=== PATIENT | female | born 1970 | race Caucasian/White ===

== ENCOUNTER 2016-12-27 01:52 | Observation (INO) | payer MEDICARE, OTHER ==
[2016-12-27] VITALS (9 sets, daily range): BP systolic 126–188; BP diastolic 73–90; PULSE 66–91; RESP 18–19; TEMP 97.8; Ht 167.6 cm; Wt 108.5 kg
[~2016-12-27] VITALS: Ht 167.6 cm; Wt 108.5 kg
[2016-12-27 02:52] LABS: BASOPHIL # 0.1 10^3/ul (0.0-0.1); BASOPHILS % 0.9 % (0.0-2.0); EOSINOPHILS # 0.4 10^3/ul (0.0-0.5); EOSINOPHILS % 4.9 % (0.0-7.0); HEMATOCRIT 36.3 % (37.0-47.0); HEMOGLOBIN 12.4 g/dl (12.0-16.0); LYMPHOCYTES # 2.1 10^3/ul (0.8-2.9); LYMPHOCYTES % 26.9 % (15.0-51.0); MEAN CORPUSCULAR HEMOGLOBIN 35.9 pg (29.0-33.0); MEAN CORPUSCULAR HGB CONC 34.2 g/dl (32.0-37.0); MEAN CORPUSCULAR VOLUME 105.2 fl (82.0-101.0); MEAN PLATELET VOLUME 9.6 fl (7.4-10.4); MONOCYTE # 0.8 10^3/ul (0.3-0.9); MONOCYTES % 9.4 % (0.0-11.0); NEUTROPHIL # 4.6 10^3/ul (1.6-7.5); NEUTROPHILS % 57.6 % (39.0-77.0); PLATELET COUNT 297 10^3/UL (140-415); RED BLOOD COUNT 3.45 10^6/ul (4.20-5.40); RED CELL DISTRIBUTION WIDTH 15.9 % (11.5-14.5)
[2016-12-27 03:15] LABS: INR 0.87; PARTIAL THROMBOPLASTIN TIME 26.9 Sec (25.0-35.0); PROTIME 11.8 Sec (12.2-14.2); PT RATIO 0.9
[2016-12-27 03:24] LABS: ALBUMIN 4.6 g/dl (3.3-4.9); ALBUMIN/GLOBULIN RATIO 1.27; BILIRUBIN,INDIRECT 0.2 mg/dl (0-1.1); BILIRUBIN,TOTAL 0.2 mg/dl (0.2-1.3); CALCIUM 9.6 mg/dl (8.4-10.2); POTASSIUM 4.9 mmol/L (3.5-5.1); TOTAL PROTEIN 8.2 g/dl (6.1-8.1)
[2016-12-27 03:35] LABS: TROPONIN-I 0.048 ng/ml (0.00-0.12)
--- NOTE | 2016-12-27 03:35 | RADRPT ---
PROCEDURE: CHEST - 1 VIEW CLINICAL INDICATION: 46-year-old female with chest pain. TECHNIQUE: A single frontal AP upright portable view of the chest was performed. The images were reviewed on a PACS workstation. COMPARISON: None. FINDINGS: There is a right internal jugular line with the tip at the right atrial level. The cardiomediastina l silhouette is mildly enlarged. There is a shallow inspiration. There is no evidence for an infil trate. There is no evidence for congestive heart failure. There is no evidence for pneumothorax. Mi ld degenerative changes are seen within the spine. IMPRESSION: 1. Right internal jugular central line with the tip at the right atrial level. 2. Cardiomegaly. 3. Shallow inspiration. 4. Mild degenerative changes within the spine. .Osiel Lopez MD, Date Time Electronically viewed and signed by .Osiel Lopez MD, on 12/27/2016 03:34 .M/
[2016-12-27 03:36] LABS: CREATININE 11.36 mg/dl (0.44-1.00)
[2016-12-27] MEDS ORDERED: SEVE800T7 PO (03:43)
[2016-12-27] MEDS ORDERED: LABE100T3 PO (03:43)
[2016-12-27] MEDS ORDERED: GLIM4TAB PO (03:43)
[2016-12-27] MEDS ORDERED: LEVO25TA59 PO (03:43)
[2016-12-27] MEDS ORDERED: FURO40TA4 PO (03:43)
[2016-12-27] MEDS ORDERED: CLON-379 PO (03:43)
[2016-12-27] MEDS ORDERED: MINE3.5O31 BOTH EYES (03:43)
--- NOTE | 2016-12-27 05:49 | ERA ---
ER Documentation Chief Complaint Date/Time DATE: 12/27/16 TIME: 05:48 Chief Complaint right subclavian lucio catheter for dialysis is broken, VISUALLY IMPAIRED HPI 46-year-old female comes in with a right subclavian Lucio catheter for dialysis that is malfunctioning. Patient has missed her last dialysis. She can was a mild shortness of breath. No chest pain. No other current complaints ROS All systems reviewed and are negative except as per history of present illness. Medications Home Meds Reported Medications Artificial Tears* (Akwa Oint*) 3.5 Gm Oint, 1 APPLIC BOTH EYES HS, #1 TUB 12/27/16 Labetalol Hcl* (Labetalol Hcl*) Unknown Strength Tablet, PO BID, TAB 12/27/16 Levothyroxine Sodium* (Synthroid*) Unknown Strength Tablet, 0 PO BEFORE BREAKFAST, #30 TAB 12/27/16 Sevelamer Carbonate* (Renvela*) 800 Mg Tablet, 0.8 GM PO BID, TAB 12/27/16 Clonidine Hcl* (Clonidine Hcl*) 0.1 Mg Tab, 0.1 MG PO Q4H, TAB 12/27/16 Furosemide* (Furosemide*) 40 Mg Tablet, 40 MG PO DAILY, TAB 12/27/16 Glimepiride* (Glimepiride*) 4 Mg Tablet, 4 MG PO WITH BREAKFAST DINNE, TAB 12/27/16 Allergies Allergies: Coded Allergies: hydralazine (Verified Allergy, Unknown, 12/27/16) simvastatin (Verified Allergy, Unknown, 12/27/16) PMhx/Soc History of Surgery: No Anesthesia Reaction: No Hx Neurological Disorder: No Hx Respiratory Disorders: No Hx Cardiac Disorders: Yes (HTN ) Hx Psychiatric Problems: No Hx Alcohol Use: No Hx Substance Use: No Hx Tobacco Use: No Smoking Status: Never smoker Physical Exam Vitals Vital Signs Date Time Temp Pulse Resp B/P Pulse Ox O2 Delivery O2 Flow Rate FiO2 12/27/16 04:30 97.8 81 19 186/82 100 Room Air 12/27/16 02:20 97.8 72 20 196/94 100 Room Air 12/27/16 02:01 97.8 86 20 231/118 100 Physical Exam Const: [] Head: Atraumatic Eyes: Normal Conjunctiva ENT: Normal External Ears, Nose and Mouth. Neck: Full range of motion..~ No meningismus. Resp: Clear to auscultation bilaterally Cardio: Regular rate and rhythm, no murmurs Abd: Soft, non tender, non distended. Normal bowel sounds Skin: No petechiae or rashes Back: No midline or flank tenderness Ext: No cyanosis, or edema Neur: Awake and alert Psych: Normal Mood and Affect Result Diagram: 12/27/16 0240 12/27/16 0240 Results 24 hrs Laboratory Tests Test 12/27/16 02:40 White Blood Count 8.010^3/ul Red Blood Count 3.4510^6/ul Hemoglobin 12.4g/dl Hematocrit 36.3% Mean Corpuscular Volume 105.2fl Mean Corpuscular Hemoglobin 35.9pg Mean Corpuscular Hemoglobin Concent 34.2g/dl Red Cell Distribution Width 15.9% Platelet Count 15240^3/UL Mean Platelet Volume 9.6fl Neutrophils % 57.6% Lymphocytes % 26.9% Monocytes % 9.4% Eosinophils % 4.9% Basophils % 0.9% Nucleated Red Blood Cells % 0.0/100WBC Neutrophils # 4.610^3/ul Lymphocytes # 2.110^3/ul Monocytes # 0.810^3/ul Eosinophils # 0.410^3/ul Basophils # 0.110^3/ul Nucleated Red Blood Cells # 0.010^3/ul Prothrombin Time 11.8Sec Prothrombin Time Ratio 0.9 INR International Normalized Ratio 0.87 Activated Partial Thromboplast Time 26.9Sec Sodium Level 141mmol/L Potassium Level 4.9mmol/L Chloride Level 98mmol/L Carbon Dioxide Level 23mmol/L Anion Gap 25 Blood Urea Nitrogen 67mg/dl Creatinine 11.36mg/dl Glucose Level 163mg/dl Calcium Level 9.6mg/dl Total Bilirubin 0.2mg/dl Direct Bilirubin 0.00mg/dl Indirect Bilirubin 0.2mg/dl Aspartate Amino Transf (AST/SGOT) 23IU/L Alanine Aminotransferase (ALT/SGPT) 23IU/L Alkaline Phosphatase 109IU/L Troponin I 0.048ng/ml B-Type Natriuretic Peptide 4960PG/ML Total Protein 8.2g/dl Albumin 4.6g/dl Globulin 3.60g/dl Albumin/Globulin Ratio 1.27 Procedures/MDM EKG: Rate/Rhythm: [Normal Sinus Rhythm] QRS, ST, T-waves: [No changes consistent w/ acute ischemia] Impression: [No evidence of ischemia or arrhythmia] Chest X-ray 1V Interpreted by me: Soft Tissue: No acute abnormalities Bones: No acute abnormalities Mediastinum/Cardiac Silhouette/Lungs: [No acute abnormalities] Patient's heart failure symptoms is concerning for acute decompensation and will require inpatient workup and monitoring. Further w/u for ischemia, arrhythmia, PE or dissection will be deferred to the inpatient team. Patient's Lucio catheter also need to be replaced Accepting Care Team: Current data and ongoing care discussed. Time: 5:35 AM Primary Provider: Hospitalist Consulting: [XOXOXO] Outstanding Data: none Departure Diagnosis: Primary Impression: Complication of vascular access for dialysis Qualified Code: T82.9XXA - Complication of vascular access for dialysis, initial encounter Additional Impression: Fluid overload Qualified Code: E87.79 - Other hypervolemia Condition: Serious COLIN ESCOBEDO Dec 27, 2016 05:49
[2016-12-27] MEDS ORDERED: GLUCAGON 1 MG INJ IM PRN (09:00)
[2016-12-27] MEDS ORDERED: ONDANSETRON 4 MG INJ IV PRN (09:00)
[2016-12-27] MEDS ORDERED: GLUCOSE GEL 15 GRAM TUBE PO PRN ×2 (09:00)
[2016-12-27] MEDS ORDERED: DEXTROSE 50% 50 ML SYRINGE IV PRN ×2 (09:00)
[2016-12-27] MEDS ORDERED: NACL 0.9% 3 ML SYG IV SCH (09:00)
[2016-12-27] MEDS ORDERED: ALBUTEROL/IPRATROPIUM (NEB) 3 ML AMP HHN PRN (09:00)
[2016-12-27] MEDS ORDERED: INSULIN GLARGINE [LANtus] 3 ML PEN SC SCH (09:00)
[2016-12-27] MEDS ORDERED: LABETALOL HCL 20MG INJ IV PRN (09:00)
[2016-12-27] MEDS: LABETALOL 200 MG TAB PO SCH ×2 (09:00→21:00)
[2016-12-27] MEDS ORDERED: GLUCOSE GEL 15 GRAM TUBE BUCCAL PRN (09:00)
--- NOTE | 2016-12-27 10:28 | HP ---
Date/Time of Note Date/Time of Note DATE: 12/27/16 TIME: 10:23 Assessment/Plan Lines/Catheters IV [facility]from [facility]): Saline Lock Assessment/Plan Assessment/Plan 1. Dialysis catheter malfunction -Patient accidentally cut one part of the dialysis catheter and now needs to be replaced. - will place a vascular or IR consult. - will also need to get nephrology on board. 2. Hypertensive urgency: Blood pressure is not at goal but is better controlled -We will continue her home medications with adjustments as needed. Once the dialysis is resumed, anticipate blood pressure to get better HPI/ROS Admit Date/Time Admit Date/Time Dec 27, 2016 at 05:44 Hx of Present Illness This is a 46-year-old female with a history of hypertension and end-stage renal disease who presented to the emergency department complaining of dialysis catheter malfunction. She said she accidentally cut 1 part of her dialysis catheter and also resolved she said she was unable to get the dialysis yesterday. She usually gets her dialysis on Sunday and Sunday. She states she feels like her body is" full of fluid". She said she weighed herself and now she is 4 pounds heavier. She however denies shortness of breath. When she presented to the ER, blood pressure was 231/118. BUN 67, creatinine 11.38. Potassium is normal at 4.9 and her bicarb was also normal at 23. PMH/Family/Social Past Medical History Medical History: hypertension, renal disease Social History Alcohol Use: none Smoking Status: Never smoker Drug Use: none Exam/Review of Systems Vital Signs Vitals Vital Signs Date Time Temp Pulse Resp B/P Pulse Ox O2 Delivery O2 Flow Rate FiO2 12/27/16 09:05 98.5 68 18 171/79 98 12/27/16 04:30 Room Air Exam Constitutional: alert, oriented, well developed Head: atraumatic, normocephalic Respiratory: clear to auscultation, normal air movement Cardiovascular: regular rate and rhythm Gastrointestinal: non-tender, soft Extremities: normal pulses Labs Result Diagram: 12/27/16 0240 12/27/16 0240 Medications Medications Current Medications Ondansetron HCl (Zofran Inj) 4 mg Q6H PRN IV NAUSEA AND/OR VOMITING; Start 12/27 at 09:00 Labetalol HCl (Labetalol) 10 mg Q2H PRN IV SBP > 160; Start 12/27/16 at 09:00 Eye Lubricant (Akwa Oint) 1 applic HS BOTH EYES ; Start 12/27/16 at 21:00 Clonidine (Catapres) 0.1 mg Q4H PO ; Start 12/27/16 at 09:00 Furosemide (Lasix) 40 mg DAILY PO ; Start 12/27/16 at 09:00 Sevelamer Carbonate (Renvela) 0.8 gm BID PO ; Start 12/27/16 at 10:00 Labetalol HCl (Normodyne) 200 mg BID PO ; Start 12/27/16 at 09:00 Diagnostic Test (Pha) (Accu-Chek) 1 ea 02 XX ; Start 12/28/16 at 02:00 Insulin Glargine (Lantus) 10 unit DAILY@09 SC ; Start 12/27/16 at 09:00 Diagnostic Test (Pha) (Accu-Chek) 1 ea 02 XX ; Start 12/28/16 at 02:00 Levothyroxine Sodium (Synthroid) 50 mcg DAILY@06 PO ; Start 12/27/16 at 10:00 Miscellaneous Information 1 ea NOTE XX ; Start 12/27/16 at 09:00 Glucose (Glutose) 15 gm Q15M PRN PO DECREASED GLUCOSE; Start 12/27/16 at 09:00 Glucose (Glutose) 22.5 gm Q15M PRN PO DECREASED GLUCOSE; Start 12/27/16 at 09:00 Dextrose (D50w Syringe) 25 ml Q15M PRN IV DECREASED GLUCOSE; Start 12/27/16 at 09:00 Dextrose (D50w Syringe) 50 ml Q15M PRN IV DECREASED GLUCOSE; Start 12/27/16 at 09:00 Glucagon (Glucagen) 1 mg Q15M PRN IM DECREASED GLUCOSE; Start 12/27/16 at 09:00 Glucose (Glutose) 15 gm Q15M PRN BUCCAL DECREASED GLUCOSE; Start 12/27/16 at 09: 00 COLIN RICE MD Dec 27, 2016 10:28
[2016-12-27] MEDS: SEVELAMER CARBONATE 0.8 GM PKT PO SCH ×2 (10:38→21:00)
[2016-12-27] MEDS: FUROSEMIDE 40 MG TAB PO SCH (10:38)
[2016-12-27] MEDS: LEVOTHYROXINE 50 MCG TAB PO SCH (10:38)
[2016-12-27] MEDS ORDERED: INSULIN ASPART [NOVOLOG] 3 ML PEN SC SCH (12:00)
[2016-12-27] MEDS ORDERED: PENDING SANTYL ORDER FOR WOUND CARE XX PRN (12:00)
[2016-12-27] MEDS ORDERED: HEPARIN 1000 UNITS/ML 10 ML INJ ONE (16:42)
[2016-12-27] MEDS ORDERED: LIDOCAINE 1% (MDV) 20 ML INJ ONE ×2 (16:42→17:25)
[2016-12-27] MEDS: GLIMEPIRIDE 4 MG TAB PO SCH (16:48)
--- NOTE | 2016-12-27 17:39 | OPR ---
Date/Time of Note Date/Time of Note DATE: 12/27/16 TIME: 17:34 Operative Report Free Text/Dictation DATE OF OPERATION: 12/27/2016 SURGEON: Alex Driver MD. PREOPERATIVE DIAGNOSIS: End-stage renal disease and malfunctioning right chest wall catheter POSTOPERATIVE DIAGNOSIS:Same ANESTHESIA: Local BLOOD LOSS: minimal COMPLICATIONS: None. HEPARIN: None CONTRAST: None ACCESS: Left IJ vein CLOSURE: Manual compression & 3-0 Nylon suture INDICATIONS: This is a 46 year-old female with renal failure and multiple medical conditions. Currently has a right chest catheter that was injured and malfunctioning and requires to be exchanged for dialysis. Patient and family have been informed of the alternatives, risks, and benefits. Risks including but not limited to bleeding, thrombosis, embolization, myocardial infarction, , device malfunction, infection, pneumothorax, and nephrotoxicity and patient has agreed to proceed. PROCEDURE: 1. Emergent Exchange of right internal jugular permanent hemodialysis catheter DESCRIPTION: The patient was placed supine on angio bed. The bed was placed in Trendelenburg position and bilateral neck and chest were prepped and draped with sterile technique. A time-out was completed verifying correct patient, procedure, site, positioning, and catheter prior to beginning this procedure. The dialysis catheter was flushed with heparin to ensure function of each port. The skin and subcutaneous tissue were the perm catheter insertion site was anesthetized with 1% lidocaine. Landmarks were identified. The infraclavicular chest wall catheter was used to gain access of the central vein under fluoroscopy. Using the malfunctioned permanent catheter a stiff glidewire and Castillo wires were placed in the IVC under fluoroscopy. The permanent catheter was exchanged over the wires and placed in the distal SVC. A spot fluoro was performed and catheter position was satisfactory. Each port was aspirated to ensure adequate blood flow and then flushed with heparinized saline. Each port had heparin solution placed. The Catheter was secured using 3 -0 nylon suture and a sterile dressings applied. The patient tolerated the procedure well and taken to the postanesthesia unit in fair condition. Plan:Patient can be discharged from vascular standpoint post HD ALEX DRIVER MD Dec 27, 2016 17:39
--- NOTE | 2016-12-27 18:06 | HP ---
DATE OF ADMISSION: 12/27/2016 HISTORY OF PRESENT ILLNESS: Ms. Baird is a 46-year-old female with a history of end-stage renal disease, right-hand dominant, who presented to [facility] secondary to accidental injury to her right chest wall dialysis catheter. It seems that the patient was trying to remove her dressing off her chest and accidentally cut 1 of the ports. At the moment, the patient denies shortness of breath, chest pain, nausea, vomiting, fevers, chills. Her last dialysis sessions was on Sunday. She is scheduled on Sunday, , and Sunday. Further, the patient has had history of left upper extremity fistula that has not matured adequately yet. She has had multiple interventions and seems like she complains of left upper extremity numbness and coldness that is being evaluated and being followed by outside vascular surgeon in [place] where she lives. At the moment, she denies shortness of breath, chest pain, nausea, vomiting, fever, chills. She denies current extremity claudication or rest pain like symptoms. REVIEW OF SYSTEMS: Fourteen point review performed and negative, except what was mentioned in HPI. PAST MEDICAL HISTORY: Entails hypertension; end-stage renal disease on hemodialysis Sunday, , and Sunday; morbidly obese; hyperlipidemia. SURGICAL HISTORY: Left upper extremity fistula creation and multiple interventions. Right chest wall catheter. FAMILY HISTORY: Positive for hypertension, coronary artery disease, and end-stage renal disease. SOCIAL HISTORY: Denies tobacco, alcohol, or illicit drug use. PHYSICAL EXAMINATION: GENERAL: Alert and oriented x3. No apparent distress. HEENT: Normocephalic and atraumatic. PERRLA. EOMI. Mucosa is moist. NECK: Supple. No carotid bruits. LUNGS: Clear to auscultation bilaterally. No crackles. CARDIOVASCULAR: S1, S2 present. No murmurs. ABDOMEN: Soft, nontender, and nondistended. Bowel sounds are positive. Large truncal obesity. EXTREMITIES: Lower extremities, unable to palpate a femoral pulse secondary to body habitus. Palpable pedal pulses. Motor and sensory intact. Capillary refill 2-3 seconds. Left upper extremity palpable brachial pulse. Motor and sensory intact. Capillary refill 3 seconds. Surgical scar well healed. Fistula with bruit and thrill present, somewhat weak. Right chest wall catheter intact with a venous aspect of the port damaged. ASSESSMENT/PLAN: End-stage renal disease with hyperkalemia: The patient has not been able to receive her dialysis secondary to malfunction of her dialysis catheter after sustaining injury from removing her dressing. We will plan to emergently replace her dialysis catheter in order for her to be able to undergo dialysis session and resolve her current hyperkalemia. Optimize vascular status (nutrition, exercise, sugar control, antiplatelets). The patient will follow up with her vascular surgeon in [place] to assess her left upper extremity access issues, as she is asked to have that done, as she lives in [place]. Discussed findings, plan, and management with the patient. She understands. Thank you for allowing us to partake in the care of your patient. Please call with any questions. Dictated By: Alex Campbell MD /[email or web address] /Document#: [id number]
[2016-12-27] MEDS ORDERED: OCULAR LUBRICANT 3.5 GM OPH OINT BOTH EYES SCH (21:00)
[2016-12-27] MEDS ORDERED: MAGNESIUM HYDROXIDE 30ML CUP PO ONE (22:30)
[2016-12-28] VITALS (13 sets, daily range): BP systolic 143–200; BP diastolic 66–112; PULSE 64–90; RESP 18
--- NOTE | 2016-12-28 00:21 | CONS ---
Date/Time of Note Date/Time of Note DATE: 12/28/16 TIME: 00:20 Assessment/Plan Assessment/Plan Chief Complaint/Hosp Course A/P MALFUNCTIONING PERMACATH ESRD HTN DM ANEMIA PLAN PLACEMENT OF CATH AND HD Problems: Consultation Date/Type/Reason Admit Date/Time Dec 27, 2016 at 05:44 Initial Consult Date Type of Consultation: RENAL [id number] HR Interval Summary Constitutional: no complaints Exam/Review of Systems Vital Signs Vitals Vital Signs Date Time Temp Pulse Resp B/P Pulse Ox O2 Delivery O2 Flow Rate FiO2 12/27/16 22:12 98.3 79 19 188/90 99 12/27/16 04:30 Room Air Exam Neck: supple Respiratory: clear to auscultation Cardiovascular: regular rate and rhythm Gastrointestinal: soft Musculoskeletal: nl extremities to inspection Extremities: normal pulses Neurological: INSTRUCTOR EXTENSION WORK II-XII intact, nl mental status Results Result Diagram: 12/27/16 0240 12/27/16 0240 Results 24 hrs Laboratory Tests Test 12/27/16 02:40 12/27/16 11:04 White Blood Count 8.0 Red Blood Count 3.45 L Hemoglobin 12.4 Hematocrit 36.3 L Mean Corpuscular Volume 105.2 H Mean Corpuscular Hemoglobin 35.9 H Mean Corpuscular Hemoglobin Concent 34.2 Red Cell Distribution Width 15.9 H Platelet Count 297 Mean Platelet Volume 9.6 Neutrophils % 57.6 Lymphocytes % 26.9 Monocytes % 9.4 Eosinophils % 4.9 Basophils % 0.9 Nucleated Red Blood Cells % 0.0 Neutrophils # 4.6 Lymphocytes # 2.1 Monocytes # 0.8 Eosinophils # 0.4 Basophils # 0.1 Nucleated Red Blood Cells # 0.0 Prothrombin Time 11.8 L Prothrombin Time Ratio 0.9 INR International Normalized Ratio 0.87 Activated Partial Thromboplast Time 26.9 Sodium Level 141 Potassium Level 4.9 Chloride Level 98 Carbon Dioxide Level 23 Anion Gap 25 H Blood Urea Nitrogen 67 H Creatinine 11.36 H Glucose Level 163 Calcium Level 9.6 Total Bilirubin 0.2 Direct Bilirubin 0.00 Indirect Bilirubin 0.2 Aspartate Amino Transf (AST/SGOT) 23 Alanine Aminotransferase (ALT/SGPT) 23 Alkaline Phosphatase 109 Troponin I 0.048 B-Type Natriuretic Peptide 4960 H Total Protein 8.2 H Albumin 4.6 Globulin 3.60 H Albumin/Globulin Ratio 1.27 Bedside Glucose 102 Medications Medications Current Medications Ondansetron HCl (Zofran Inj) 4 mg Q6H PRN IV NAUSEA AND/OR VOMITING; Start 12/27 at 09:00 Labetalol HCl (Labetalol) 10 mg Q2H PRN IV SBP > 160; Start 12/27/16 at 09:00 Eye Lubricant (Akwa Oint) 1 applic HS BOTH EYES ; Start 12/27/16 at 21:00 Clonidine (Catapres) 0.1 mg Q4H PO Last administered on 12/27/16 22:29; Admin Dose 0.1 MG; Start 12/27/16 at 09:00 Furosemide (Lasix) 40 mg DAILY PO Last administered on 12/27/16 10:38; Admin Dose 40 MG; Start 12/27/16 at 09:00 Sevelamer Carbonate (Renvela) 0.8 gm BID PO Last administered on 12/27/16 10:38 ; Admin Dose 0.8 GM; Start 12/27/16 at 10:00 Labetalol HCl (Normodyne) 200 mg BID PO ; Start 12/27/16 at 09:00 Levothyroxine Sodium (Synthroid) 50 mcg DAILY@06 PO Last administered on 10:38; Admin Dose 50 MCG; Start 12/27/16 at 10:00 Miscellaneous Information 1 ea NOTE XX ; Start 12/27/16 at 09:00 Glucose (Glutose) 15 gm Q15M PRN PO DECREASED GLUCOSE; Start 12/27/16 at 09:00 Glucose (Glutose) 22.5 gm Q15M PRN PO DECREASED GLUCOSE; Start 12/27/16 at 09:00 Dextrose (D50w Syringe) 25 ml Q15M PRN IV DECREASED GLUCOSE; Start 12/27/16 at 09:00 Dextrose (D50w Syringe) 50 ml Q15M PRN IV DECREASED GLUCOSE; Start 12/27/16 at 09:00 Glucagon (Glucagen) 1 mg Q15M PRN IM DECREASED GLUCOSE; Start 12/27/16 at 09:00 Glucose (Glutose) 15 gm Q15M PRN BUCCAL DECREASED GLUCOSE; Start 12/27/16 at 09: 00 Miscellaneous Information (Pending [facility] Order For Wound Care) This patient degroot... PRN PRN XX WOUND CARE; Start 12/27/16 at 12:00 LAURENCE WATTS MD Dec 28, 2016 00:21
[2016-12-28] MEDS ORDERED: ACCU-CHEK XX SCH ×2 (02:00)
[2016-12-28] MEDS: LEVOTHYROXINE 50 MCG TAB PO SCH (06:00)
[2016-12-28] MEDS ORDERED: LEVOTHYROXINE SODIUM 50 MCG PO SCH (07:00)
[2016-12-28 07:21] LABS: BASOPHIL # 0.1 10^3/ul (0.0-0.1); BASOPHILS % 1.2 % (0.0-2.0); EOSINOPHILS # 0.3 10^3/ul (0.0-0.5); EOSINOPHILS % 4.8 % (0.0-7.0); HEMATOCRIT 37.2 % (37.0-47.0); HEMOGLOBIN 12.3 g/dl (12.0-16.0); LYMPHOCYTES # 1.3 10^3/ul (0.8-2.9); LYMPHOCYTES % 21.3 % (15.0-51.0); MEAN CORPUSCULAR HGB CONC 33.1 g/dl (32.0-37.0); MEAN PLATELET VOLUME 9.8 fl (7.4-10.4); MONOCYTE # 0.5 10^3/ul (0.3-0.9); MONOCYTES % 8.8 % (0.0-11.0); NEUTROPHIL # 3.7 10^3/ul (1.6-7.5); NEUTROPHILS % 63.6 % (39.0-77.0); PLATELET COUNT 264 10^3/UL (140-415); RED BLOOD COUNT 3.51 10^6/ul (4.20-5.40); RED CELL DISTRIBUTION WIDTH 15.9 % (11.5-14.5); WHITE BLOOD COUNT 5.9 10^3/ul (4.8-10.8)
[2016-12-28] MEDS: GLIMEPIRIDE 4 MG TAB PO SCH (07:30)
[2016-12-28 08:22] LABS: ALBUMIN 4.1 g/dl (3.3-4.9); ALBUMIN/GLOBULIN RATIO 1.13; BILIRUBIN,INDIRECT 0.1 mg/dl (0-1.1); BILIRUBIN,TOTAL 0.1 mg/dl (0.2-1.3); CALCIUM 8.8 mg/dl (8.4-10.2); MAGNESIUM 2.7 mg/dl (1.7-2.5); PHOSPHORUS 6.7 mg/dl (2.5-4.9); POTASSIUM 5.7 mmol/L (3.5-5.1); TOTAL PROTEIN 7.7 g/dl (6.1-8.1)
[2016-12-28 08:29] LABS: CREATININE 12.67 mg/dl (0.44-1.00)
[2016-12-28] MEDS: LABETALOL 200 MG TAB PO SCH (09:00)
[2016-12-28] MEDS: FUROSEMIDE 40 MG TAB PO SCH (09:00)
[2016-12-28] MEDS: SEVELAMER CARBONATE 0.8 GM PKT PO SCH (09:00)
--- NOTE | 2016-12-28 11:07 | PDOCDIS ---
Discharge Instructions CONDITION Patient Condition: Stable HOME CARE INSTRUCTIONS: Special Diet: RENAL FOLLOW UP/APPOINTMENTS Follow-up Plan please follow up with your primary care provider as soon as possible, also follow up with your die finisher forging for care for the new permacath. ANGELICA STEVEN Dec 28, 2016 11:07
--- NOTE | 2016-12-28 11:11 | DS ---
Date/Time of Note Date/Time of Note DATE: 12/28/16 TIME: 11:10 Discharge Summary Admission/Discharge Info Admit Date/Time Dec 27, 2016 at 05:44 Discharge Date/Time Patient Condition: Stable Hx of Present Illness This is a 46-year-old female with a history of hypertension and end-stage renal disease who presented to the emergency department complaining of dialysis catheter malfunction. She said she accidentally cut 1 part of her dialysis catheter and also resolved she said she was unable to get the dialysis yesterday. She usually gets her dialysis on Sunday and Sunday. She states she feels like her body is" full of fluid". She said she weighed herself and now she is 4 pounds heavier. She however denies shortness of breath. When she presented to the ER, blood pressure was 231/118. BUN 67, creatinine 11.38. Potassium is normal at 4.9 and her bicarb was also normal at 23. Hospital Course Patient is a 46-year-old female with past medical history of hypertension end- stage renal disease on hemodialysis who presented to [facility] for malfunctioning permacath. Patient also does have a left upper extremity fistula but has not fully matured and has complications. Patient does have a coding compliance auditor following in [place] but is visiting her mother in this area. Patient was admitted to the medicine service and vascular surgery was called who replaced the permacath and patient received dialysis. Patient wants to go home and is stable and will be discharged to follow-up with her coding compliance auditor as soon as possible for management of her end-stage renal disease and to continue all her medications. Dialysis catheter malfunction Hypertensive urgency, resolved Hyperkalemia, resolving with dialysis Metabolic acidosis, secondary to end stage renal disease End-stage renal disease Elevated BUN Home Meds Reported Medications Artificial Tears* (Akwa Oint*) 3.5 Gm Oint, 1 APPLIC BOTH EYES HS, #1 TUB 12/27/16 Labetalol Hcl* (Labetalol Hcl*) Unknown Strength Tablet, PO BID, TAB 12/27/16 Levothyroxine Sodium* (Synthroid*) Unknown Strength Tablet, 0 PO BEFORE BREAKFAST, #30 TAB 12/27/16 Sevelamer Carbonate* (Renvela*) 800 Mg Tablet, 0.8 GM PO BID, TAB 12/27/16 Clonidine Hcl* (Clonidine Hcl*) 0.1 Mg Tab, 0.1 MG PO Q4H, TAB 12/27/16 Furosemide* (Furosemide*) 40 Mg Tablet, 40 MG PO DAILY, TAB 12/27/16 Glimepiride* (Glimepiride*) 4 Mg Tablet, 4 MG PO WITH BREAKFAST DINNE, TAB 12/27/16 Primary Care Provider Care Physician No Primary Pending Labs Laboratory Tests Test 12/28/16 06:59 White Blood Count 5.910^3/ul (4.8-10.8) Red Blood Count 3.5110^6/ul (4.20-5.40) Hemoglobin 12.3g/dl (12.0-16.0) Hematocrit 37.2% (37.0-47.0) Mean Corpuscular Volume 106.0fl (82.0-101.0) Mean Corpuscular Hemoglobin 35.0pg (29.0-33.0) Mean Corpuscular Hemoglobin Concent 33.1g/dl (32.0-37.0) Red Cell Distribution Width 15.9% (11.5-14.5) Platelet Count 51789^3/UL (140-415) Mean Platelet Volume 9.8fl (7.4-10.4) Neutrophils % 63.6% (39.0-77.0) Lymphocytes % 21.3% (15.0-51.0) Monocytes % 8.8% (0.0-11.0) Eosinophils % 4.8% (0.0-7.0) Basophils % 1.2% (0.0-2.0) Nucleated Red Blood Cells % 0.0/100WBC (0.0-0.0) Neutrophils # 3.710^3/ul (1.6-7.5) Lymphocytes # 1.310^3/ul (0.8-2.9) Monocytes # 0.510^3/ul (0.3-0.9) Eosinophils # 0.310^3/ul (0.0-0.5) Basophils # 0.110^3/ul (0.0-0.1) Nucleated Red Blood Cells # 0.010^3/ul (0.0-0.0) Sodium Level 139mmol/L (135-144) Potassium Level 5.7mmol/L (3.5-5.1) Chloride Level 100mmol/L (97-110) Carbon Dioxide Level 17mmol/L (21-31) Anion Gap 28 (8-16) Blood Urea Nitrogen 75mg/dl (7-20) Creatinine 12.67mg/dl (0.44-1.00) Glucose Level 97mg/dl (70-220) Hemoglobin A1c 5.5% (0-5.9) Calcium Level 8.8mg/dl (8.4-10.2) Phosphorus Level 6.7mg/dl (2.5-4.9) Magnesium Level 2.7mg/dl (1.7-2.5) Total Bilirubin 0.1mg/dl (0.2-1.3) Direct Bilirubin 0.00mg/dl (0.00-0.20) Indirect Bilirubin 0.1mg/dl (0-1.1) Aspartate Amino Transf (AST/SGOT) 27IU/L (15-46) Alanine Aminotransferase (ALT/SGPT) 27IU/L (13-69) Alkaline Phosphatase 107IU/L (42-121) Total Protein 7.7g/dl (6.1-8.1) Albumin 4.1g/dl (3.3-4.9) Globulin 3.60g/dl (1.3-3.2) Albumin/Globulin Ratio 1.13 ANGELICA STEVEN Dec 28, 2016 11:11
--- NOTE | 2016-12-29 08:37 | CONS ---
DATE OF ADMISSION: 12/27/2016 DATE OF CONSULTATION: 12/28/2016 Nephrology Consultation HISTORY OF PRESENT ILLNESS: Thank you, Dr. Box, for kindly asking me to see the patient in consultation. The patient is an female, 46 years old, with a history of ESRD. The patient has a history of hypertension, history of hypothyroidism, history of AV fistula in the left upper extremity not functioning well. The patient had to hane hd catheter. Accidentally the patient the catheter and presented with a malfunctioning catheter and admitted for hemodialysis. The patient denies any shortness of breath. PAST MEDICAL HISTORY: Positive for hypertension, ESRD, anemia. ALLERGIES: HYDRALAZINE. SIMVASTATIN. SOCIAL HISTORY: Negative. FAMILY HISTORY: Hypertension. MEDICATION: 1. Clonidine. 2. Eye lubricant. 3. Lasix. 4. Amaryl. 5. Labetalol. 6. Levothyroxine. 7. Renvela. REVIEW OF SYSTEMS: HEENT: Unremarkable. RESPIRATORY: Unremarkable. ABDOMEN: Unremarkable. EXTREMITIES: No swelling. CENTRAL NERVOUS SYSTEM: Unremarkable. PHYSICAL EXAMINATION: GENERAL APPEARANCE: The patient is an overweight, obese female. Awake, alert. VITAL SIGNS: Pulse 79, blood pressure 126/74. HEENT: Head is atraumatic, normocephalic. Pupils are reactive to light. NECK: Supple. No JVD. LUNGS: Clear. CARDIOVASCULAR: S1, S2 are normal. ABDOMEN: Soft, obese. Bowel sounds present. No mass_ or mass. EXTREMITIES: No cyanosis or clubbing. Edema positive. CENTRAL NERVOUS SYSTEM: The patient is awake, alert. No focal deficits. LABORATORY: sodium 141, potassium 4.9. BUN _. Chest x-ray shows patient has a right Patient has cardiomegaly _. IMPRESSION: 1. Malfunctioning Permacath. 2. End-stage renal disease. 3. Hypertension. 4. Diabetes mellitus. 5. Obesity. PLAN: The plan is to continue hemodialysis, which has been ordered. Other recommendations per surgery. On the case. Dictated By: Arnulfo Delgadillo MD /thomas/shon /Document#: [id number] JT
== END 2016-12-28 13:25 | disposition home or self-care (01) ==
LOC: E/R 01:52 → MS4 05:44 → UNDODISOB 20:44
PROVIDERS: ADMIT Internal Medicine; ATTEND Internal Medicine
DX: T82.41XA Breakdown (mechanical) of vascular dialysis catheter, initial encounter (principal); N18.6 End stage renal disease; I12.0 Hypertensive chronic kidney disease with stage 5 chronic kidney disease or end stage renal disease; I16.0 Hypertensive urgency; E11.22 Type 2 diabetes mellitus with diabetic chronic kidney disease; Z99.2 Dependence on renal dialysis; D64.9 Anemia, unspecified; E87.2 Acidosis; E03.9 Hypothyroidism, unspecified; E66.9 Obesity, unspecified; Z68.38 Body mass index [BMI] 38.0-38.9, adult
CPT/HCPCS: 36415; 36580; 71010; 77001; 80053; 82962; 83036; 83735; 83880; 84100; 84484; 85025; 85610; 85730; 90935; 93005; 99285; C1750; C1769; G0378; J1644; J1815

== ENCOUNTER 2018-05-13 18:35 | Inpatient (IN) | END 2018-05-15 14:49 | disposition home or self-care (01) | DRG 871 ==